=== PATIENT | female | born 1960 | race Caucasian/White ===

== ENCOUNTER 2020-07-15 16:52 | Outpatient (CLI) | payer OTHER, SELFPAY ==
--- NOTE | ~2020-07-15 | MR_ITS ---
EXAMINATION: MR lumbar spine wo con DATE: 07/15/2020 17:36 INDICATION: Lumbar radiculopathy. Low back pain. TECHNIQUE: Magnetic resonance imaging (MRI) of the lumbar spine was performed without intravenous con trast. Sequences included sagittal T2-weighted FSE, sagittal T2-weighted FS FSE, sagittal T1-weighted FSE, and axial T2-weighted FSE. COMPARISON: None FINDINGS: The gallbladder is distended and contains gallstones. There is 7 degrees levocurvature of l umbar spine. There are chronic compression fractures of T11 and L1. There is mildly decreased disc he ight at L3-L4 and severely decreased disc height at L4-L5 and L5-S1 with endplate remodeling. The dis malena spinal cord signal intensity is normal. The conus medullaris is at L1-L2. The following disc leve ls are specifically discussed: L1-L2: The disc does not extend beyond the endplate margin. There is no facet joint osteoarthritis. T here is no neural foraminal stenosis. There is no central canal stenosis. L2-L3: The disc does not extend beyond the endplate margin. There is mild bilateral facet joint osteo arthritis. There is no neural foraminal stenosis. There is no central canal stenosis. L3-L4: The disc is bulging. There is mild bilateral facet joint osteoarthritis. There is mild bilater al neural foraminal stenosis. There is mild central canal stenosis. L4-L5: The disc is bulging and has an annular fissure. There is severe right and moderate left facet joint osteoarthritis. There is mild right and moderate left neural foraminal stenosis. There is mild central canal stenosis. L5-S1: The disc is bulging and has an annular fissure. There is moderate bilateral facet joint osteoa rthritis. There is mild bilateral neural foraminal stenosis. There is mild central canal stenosis. IMPRESSION: 1. Severe lumbar spondylosis. 2. Distended gallbladder with gallstones. Correlate clinically for acute cholecystitis. I called this finding to Dr. Beauchamp on 07/16/20 at 9:07 AM. Reviewed, dictated and finalized at location A. ANIC/WELDER IMPRESSION: 1. Severe lumbar spondylosis. 2. Distended gallbladder with gallstones. Correlate clinically for acute cholec ystitis. I called this finding to Dr. Beauchamp on 07/16/20 at 9:07 AM.
== END 2020-07-15 16:53 | disposition home or self-care (01) ==
PROVIDERS: PCP Family Medicine; Visit Provider Family Medicine
DX: M54.12 Radiculopathy, cervical region (principal); M54.6 Pain in thoracic spine; G89.29 Other chronic pain; M47.816 Spondylosis without myelopathy or radiculopathy, lumbar region; K80.20 Calculus of gallbladder without cholecystitis without obstruction
CPT/HCPCS: 72148